=== PATIENT | female | born 1950 | race Caucasian/White ===

== ENCOUNTER 2018-10-10 10:46 | Outpatient (CLI) | payer MEDICARE, BC | END 2018-10-10 10:47 | disposition home or self-care (01) | LOC: BICMAMMO 10:46 | PROVIDERS: ATTEND Nurse Practitioner Family | DX: Z12.31 Encounter for screening mammogram for malignant neoplasm of breast (principal) | CPT/HCPCS: 77063; 77067 ==

== ENCOUNTER 2023-01-07 09:14 | Outpatient (CLI) | payer MEDICARE, BC | END 2023-01-07 09:15 | disposition home or self-care (01) | LOC: BICMAMMO 09:14 | DX: Z13.820 Encounter for screening for osteoporosis (principal); N95.1 Menopausal and female climacteric states | CPT/HCPCS: 77080 ==

== ENCOUNTER 2024-10-27 06:00 | Day surgery (SDC) | payer MEDICARE ==
[2024-10-26 13:00] VITALS: BMI 25.4
[~2024-10-27 06:00] MED LIST: EPINEPHrine 0.3 MG in Ophthalmic Irrigation Solution 500 ML IRR SCH
[2024-10-27] MEDS ORDERED: Cyclopentolate 1% Opth Drop 2 ML BOT ONE (06:30)
[2024-10-27] MEDS ORDERED: PHENYLephrine 2.5% Ophth Soln 15 ml Bottle ONE (06:30)
[2024-10-27] MEDS ORDERED: fentaNYL 50 mcg/mL 1 mL Vial ONE (06:54)
[2024-10-27] MEDS ORDERED: PROPOFOL 20 ML ONE (06:54)
[2024-10-27] MEDS ORDERED: Lidocaine 1% PF 5 ML VIAL ONE (06:56)
== END 2024-10-27 08:45 | disposition home or self-care (01) ==
LOC: SDC 06:00
PROVIDERS: ATTEND Ophthalmology Retina Specialist
DX: H43.392 Other vitreous opacities, left eye (principal); Z88.5 Allergy status to narcotic agent; Z88.0 Allergy status to penicillin; Z88.2 Allergy status to sulfonamides
CPT/HCPCS: J0171; J2704; J3010